=== PATIENT | male | born 1940 | race Caucasian/White ===

== ENCOUNTER → 2016-12-07 | Outpatient (CLI) | payer OTHER, MEDICARE | LOC: MMPC 09:00 | PROVIDERS: ATTEND Family Medicine | DX: I10 Essential (primary) hypertension (principal); E78.5 Hyperlipidemia, unspecified; E04.1 Nontoxic single thyroid nodule; Z85.46 Personal history of malignant neoplasm of prostate | CPT/HCPCS: 99213 ==

== ENCOUNTER → 2016-12-08 | Outpatient (CLI) | payer OTHER, MEDICARE ==
[2016-12-08 07:10] LABS: BASOPHILS # (AUTO) 0.03 10*3/UL; BASOPHILS % (AUTO) 0.6 % (0-1); EOSINOPHILS # (AUTO) 0.33 10*3/UL; EOSINOPHILS % (AUTO) 6.3 % (0-8); HEMATOCRIT 45.1 % (42.0-52.0); HEMOGLOBIN 15.2 g/dL (14.0-18.0); LYMPHOCYTES # (AUTO) 1.36 10*3/uL; MEAN CORPUSCULAR HEMOGLOBIN 31.3 PG (27-31); MEAN CORPUSCULAR HGB CONC 33.7 g/dL (33-37); MEAN CORPUSCULAR VOLUME 92.8 FL (80-90); MEAN PLATELET VOLUME 10.7 FL (7.4-12.2); MONOCYTES # (AUTO) 0.67 10*3/UL (0.3-0.8); MONOCYTES % (AUTO) 12.9 % (5-15); NEUTROPHILS # (AUTO) 2.81 10*3/UL; NEUTROPHILS % (AUTO) 53.9 % (50-80); RED BLOOD COUNT 4.86 10^6/uL (4.70-6.10)
[2016-12-08 07:12] LABS: PLATELET MORPHOLOGY COMMENT NORMAL MORPHOLOGY (NORM); RBC MORPHOLOGY COMMENT NORMAL MORPHOLOGY (NORM); WBC MORPHOLOGY COMMENT NORMAL MORPHOLOGY (NORM)
[2016-12-08 07:22] LABS: BUN/CREATININE RATIO 21.11 (6-20); CALCIUM 9.6 mg/dL (8.7-10.7); CHOL/HDL RATIO 3.86 RATIO (0-4.0); LDL CHOLESTEROL,CALCULATED 125.6 mg/dL
== END ==
LOC: LAB 06:56
PROVIDERS: ATTEND Family Medicine
DX: I10 Essential (primary) hypertension (principal); E04.1 Nontoxic single thyroid nodule; E78.5 Hyperlipidemia, unspecified; Z85.46 Personal history of malignant neoplasm of prostate; Z12.5 Encounter for screening for malignant neoplasm of prostate
CPT/HCPCS: 36415; 80053; 80061; 84443; 85025; G0103

== ENCOUNTER → 2017-01-14 | Outpatient (CLI) | payer OTHER, MEDICARE | LOC: MMPC 09:00 | PROVIDERS: ATTEND Family Medicine | DX: M25.561 Pain in right knee (principal) | CPT/HCPCS: 99213; G0463 ==

== ENCOUNTER → 2017-01-18 | Outpatient (CLI) | payer OTHER, MEDICARE ==
[2017-01-18 06:34] LABS: BILIRUBIN,URINE NEGATIVE (NEG); CLARITY,URINE CLEAR (CLEAR); COLOR,URINE YELLOW; GLUCOSE, URINE (UA) NEGATIVE (NEG); NITRATE,URINE NEGATIVE (NEG); OCCULT BLOOD,URINE NEGATIVE (NEG); PH,URINE 6.5 (5.0-8.5); PROTEIN,URINE NEGATIVE (NEG); UROBILINOGEN,URINE 0.2 EU/dL (0.2)
[2017-01-18 06:35] LABS: BASOPHILS # (AUTO) 0.05 10*3/UL; BASOPHILS % (AUTO) 0.8 % (0-1); EOSINOPHILS # (AUTO) 0.39 10*3/UL; EOSINOPHILS % (AUTO) 6.6 % (0-8); HEMATOCRIT 45.2 % (42.0-52.0); HEMOGLOBIN 15.3 g/dL (14.0-18.0); LYMPHOCYTES # (AUTO) 1.53 10*3/uL; MEAN CORPUSCULAR HGB CONC 33.8 g/dL (33-37); MEAN CORPUSCULAR VOLUME 91.5 FL (80-90); MEAN PLATELET VOLUME 10.7 FL (7.4-12.2); MONOCYTES # (AUTO) 0.66 10*3/UL (0.3-0.8); MONOCYTES % (AUTO) 11.2 % (5-15); NEUTROPHILS # (AUTO) 3.24 10*3/UL; NEUTROPHILS % (AUTO) 55.1 % (50-80); PLATELET MORPHOLOGY COMMENT NORMAL MORPHOLOGY (NORM); RBC MORPHOLOGY COMMENT NORMAL MORPHOLOGY (NORM); RED BLOOD COUNT 4.94 10^6/uL (4.70-6.10); URINE SAMPLE TYPE CLEAN CATCH URINE; WBC MORPHOLOGY COMMENT NORMAL MORPHOLOGY (NORM)
[2017-01-18 06:43] LABS: CALCIUM 9.4 mg/dL (8.7-10.7); SERUM ALBUMIN 4.1 g/dL (3.5-4.8)
--- NOTE | 2017-01-18 06:46 | EKG ---
[address] [address] Measurements Intervals [place] Rate: 62 P: 66 [place]: 181 QRS: 74 QRSD: 100 T: 46 QT: 401 QTc: 406 Interpretive Statements SINUS RHYTHM Compared to ECG 01/23/2016 15:56:39 No significant changes Electronically Signed On 01-18-17 16:28:36 MDT by Oscar Yates [email or web address]
== END ==
LOC: RAD 06:15 → RT 06:15
PROVIDERS: ATTEND Family Medicine
DX: M25.561 Pain in right knee (principal); I10 Essential (primary) hypertension
CPT/HCPCS: 36415; 80053; 81003; 85025; 86850; 86900; 86901; 87641; 93005; 93010

== ENCOUNTER → 2017-01-19 | Outpatient (CLI) | payer OTHER, MEDICARE ==
--- NOTE | 2017-01-19 12:30 | DI ---
HISTORY: Pre-op. FINDINGS: The heart is within normal limits with atheromatous changes of the dorsal aorta. The rebekah g anna are essentially clear. IMPRESSION: 1. No acute cardiopulmonary pathology identified.
== END ==
LOC: RAD 10:44
PROVIDERS: ATTEND Family Medicine
DX: M25.561 Pain in right knee (principal); I10 Essential (primary) hypertension
CPT/HCPCS: 71020

== ENCOUNTER → 2017-01-21 | Outpatient (CLI) | payer OTHER, MEDICARE | LOC: MMPC 09:00 | DX: L72.0 Epidermal cyst (principal) | CPT/HCPCS: 99212; G0463 ==

== ENCOUNTER → 2017-01-27 | Outpatient (CLI) | payer OTHER, MEDICARE | LOC: MMPC 11:11 | PROVIDERS: ATTEND Surgery | DX: L72.3 Sebaceous cyst (principal) | CPT/HCPCS: 99202; G0463 ==

== ENCOUNTER 2017-01-29 09:00 | Day surgery (SDC) | payer OTHER, MEDICARE ==
[~2017-01-29 09:00] MED LIST: LIDOCAINE HCL 1%/EPI 1:100,000 - 20 ML VIAL ONE; SODIUM BICARBONATE 8.4% - 50 ML VIAL ONE
[2017-01-29 11:35] VITALS: RESP 16
--- NOTE | 2017-01-29 11:40 | GEN.OPNOTE ---
Operative Note Surgery Date: 01/29/17 Preoperative Diagnosis: Inflamed sebaceous cyst left lower back. Postoperative Diagnosis: Inflamed sebaceous cyst left lower back. Procedure: Excision 3 cm sebaceous cyst left lower back. Surgeon: Milton Donaldson MD Anesthesia Type: Local (1% Xylocaine with epinephrine and sodium bicarbonate per Milton Donaldson M.D.) Estimated Blood Loss (mL): 2 Fluids: No IV fluids given Pathology: Specimen consistent with an inflamed sebaceous cyst. Not sent for pathologic analysis. Indications: Patient had a cyst for many years. Recently became inflamed. There is some erythema over the top. He was put on antibiotics. He needs surgical excision is taken to the operating room for the same. Findings: Consistent with an inflamed possibly infected sebaceous cyst. Complications: None. Operative Summary: The patient was taken to the operating suite and placed on the operating table in a prone position. The back was prepped and draped in a sterile fashion. A surgical timeout was done. There are actually 3 pores overlying the cyst. The area was infiltrated with 1% Xylocaine with epinephrine and sodium bicarbonate. An ellipse of skin to include all the pores was taken out as well as the entire cyst capsule. This was done both sharply and with electrocautery. The subcutaneous defect was extensively irrigated. Hemostasis was assured. The skin edges were undermined. The defect was closed with simple interrupted 3 -0 Prolene sutures followed by an appropriate dressing. The patient tolerated the procedure well without complication. He was taken to outpatient surgery in stable condition. All counts were correct.
[2017-01-29 12:02] VITALS: TEMP 97.6
== END 2017-01-29 11:56 | disposition home or self-care (01) ==
LOC: SDSC 09:00
PROVIDERS: ATTEND Surgery
DX: L72.3 Sebaceous cyst (principal)
CPT/HCPCS: 11404

== ENCOUNTER → 2017-02-02 | Outpatient (CLI) | payer OTHER, MEDICARE | LOC: MMPC 09:00 | PROVIDERS: ATTEND Physician Assistant Medical | DX: S80.12XA Contusion of left lower leg, initial encounter (principal); W22.8XXA Striking against or struck by other objects, initial encounter | CPT/HCPCS: 99213 ==

== ENCOUNTER → 2017-02-04 | Outpatient (CLI) | payer OTHER, MEDICARE | LOC: MMPC 11:11 | PROVIDERS: ATTEND Surgery | DX: L72.3 Sebaceous cyst (principal) ==

== ENCOUNTER → 2017-02-08 | Outpatient (CLI) | payer OTHER, MEDICARE ==
[2017-02-10 08:49] LABS: PARASITIC EXAM FIN 1937 (())
== END ==
LOC: LAB 08:07
PROVIDERS: ATTEND Family Medicine
DX: K92.1 Melena (principal); R19.7 Diarrhea, unspecified
CPT/HCPCS: 82710; 84376; 87046; 87177; 87205; 87209; 87328; 87329; 87493

== ENCOUNTER → 2017-02-09 | Outpatient (CLI) | payer OTHER, MEDICARE | LOC: MMPC 11:11 | PROVIDERS: ATTEND Surgery | DX: K92.1 Melena (principal); Z86.010 Personal history of colon polyps; R19.7 Diarrhea, unspecified; L72.3 Sebaceous cyst | CPT/HCPCS: 99212; G0463 ==

== ENCOUNTER 2017-02-19 08:20 | Emergency (ER) | payer OTHER, MEDICARE ==
[2017-02-19] MEDS ORDERED: NORMAL SALINE 10 ML SYRINGE FLUSH IVP PRN (09:00)
[2017-02-19 09:04] VITALS: RESP 18; TEMP 97.6
--- NOTE | 2017-02-19 09:19 | PDOC ---
Lower Extremity Problem HPI - General Chief Complaint: Lower Extremity Problem/Injury Stated Complaint: S/P TKA 02/16/17 - NOW SWELLING/FEVER/ITCHING Date Seen by Provider: 02/19/17 Time Seen by Provider: 08:35 Source: POSITIVE: Patient Exam Limitations: POSITIVE: No limitations Nurse's Notes Reviewed & Considered: Yes - History of Present Illness Initial Comments: The patient is a 76-year-old male who presents to the emergency department with increased pain and swelling to his right leg. He underwent total knee replacement surgery per Dr. Merritt at [facility] on Wednesday the this week. He states that this morning he seemed to be running a low-grade fever with a temperature of 100.1. He also noticed some increased pain and swelling to the medial aspect of his right thigh. He had contacted Dr. Merritt and he recommended that he come to the emergency room to have an ultrasound and evaluation. He denies any associated chest pain or shortness of breath. He is taking 2 aspirin twice a day. He denies any prior history of blood clots. He does take blood pressure medication. In addition to the increased pain and swelling in his leg, the patient is also having some itching he thinks associated with the hydrocodone. He has been taking Benadryl and this has not been helping. - Patient Home Medications Home Medications: Home Medications Epinephrine [Epipen 2-Ramy] 0.3 mg IM ONCE #2 unit 04/13/14 Amlodipine Besylate [Norvasc] 1 tab ORAL QD #90 tab 12/07/16 Fluticasone Hfa 110 Mcg INH [Flovent 110 Mcg Hfa] 2 puff INH PRN PRN inh Levothyroxine Sodium 1 tab ORAL QD #90 tab 12/07/16 Losartan/Hydrochlorothiazide [Hyzaar 100-25 Tablet] 1 tab ORAL QD #90 tab Olopatadine HCl [Pataday] 1 drop OP QD drop 12/07/16 Omeprazole 20 mg PO DAILY #90 cap 12/07/16 Fluticasone Propionate [Flonase Allergy Relief] 9.9 ml NS BID PRN #1 bottle Hydroxyzine HCl 25 - 50 mg PO Q4H PRN #30 tablet 02/19/17 Red Yeast Rice 600 mg PO DAILY 02/19/17 oxyCODONE/APAP 5/325 Tab [Percocet 5/325 Tab] 1 - 2 tab PO Q6H PRN #20 tab - Patient Allergies Allergies/Adverse Reactions: Allergies Allergy/AdvReac Type Severity Reaction Status Date / Time acetaminophen [From Anton] Allergy Intermediate ITCHING Verified 02/19/17 10:39 hydrocodone bitartrate Allergy Intermediate ITCHING Verified 02/19/17 10:39 [From Anton] Latex, Natural Rubber Allergy Intermediate RASH Verified 02/19/17 08:38 methylprednisolone Allergy Intermediate hives Verified 02/19/17 08:38 prednisone Allergy Intermediate Hives Verified 02/19/17 08:38 Ylueysp-Szd-Dky Reductase Allergy Intermediate "felt like Verified 02/19/17 08: 38 Inhibitor he was on fire" alprostadil [From Caverject] Allergy Unknown RASH Verified 02/19/17 08:38 Shellfish *RETIRED-04/28/12 Allergy Unknown Anaphylaxis Verified 02/19/17 08:38 [Shellfish] bupivacaine Allergy Blood Verified 02/19/17 08:38 pressure drops fentanyl [Fentanyl] AdvReac Severe CHEST PAIN Verified 02/19/17 08:38 OR TIGHTNESS IOBAN Allergy HIVES Uncoded 02/19/17 08:38 POLYESTER Allergy HIVES Uncoded 02/19/17 08:38 Past Medical History - heen HEENT History: Denies History Cardiovascular History: Hypertension, Valvular Heart Disease, Hyperlipidemia Respiratory History: Asthma Additional Respiratory History: HAYFEVER, SEASONAL Gastrointestinal History: GERD Additional Gastrointestinal History: possible C-Diff 12/06 Genitourinary History: Denies History Endocrine History: Hypothyroidism Musculoskeletal History: Arthritis, Limited ROM Prosthesis or Implant: Yes (R GREAT TOE, L TKA, RT TKA) Additional Musculoskeletal History: 02/16/17 RT TKA Neurological History: Denies History Blood Disorders: Denies History Psychiatric History: Denies History History of Sexually Transmitted Diseases: No Cancer History: Other (please comment) In Past Year Been Physically Harmed or Verbally Threatened: No History of MDRO: No History of Other Communicable Diseases: No Tobacco Use: Never Smoker Alcohol Use: Occasionally Substance Use Type: None Previous Surgical History: Yes Type / Date of Surgery: LEFT KNEE SCOPE/ NASAL POLYPECTOMY X 3/ LEFT TKA/ RIGHT BIG TOE/ RADICAL PROSTATECTOMY/ BILAT ETHMOIDECTOMIES. 02/16/17 RT TKA Anesthesia Reactions: Yes (CAN NOT TAKE FENTANYL/ SEVERE HYPOTENSION AND BRADYCARDIA) Malignant Hyperthermia: No Significant Family History: Cancer Past Medical History Reviewed: Reviewed - No Changes ROS - Limitations ROS Limitations: No Limitations Constitution: REPORTS: Fever (Temp 100.1 this morning). DENIES: Chills Cardiovascular: DENIES: Chest Pain, Heart Palpitations Respiratory: DENIES: Hurts To Breathe, Shortness Of Breath Neurological: REPORTS: Denies Neuro Symptoms Gastrointestinal: REPORTS: Denies GI Symptoms Eyes: REPORTS: Denies Symptoms ENT: REPORTS: Denies Symptoms Skin: REPORTS: Other (He does have itching with no rash) Lower Ext Problem Exam - General Appearance General Appearance: POSITIVE: Alert, No Acute Distress - Extremities Lower Extremity: POSITIVE: Other (Examination the right lower extremity reveals a midline incision over the right knee from recent knee replacement surgery, the wound itself looks good, there is no obvious drainage, no obvious surrounding erythema or induration, there is some mild bruising around the incision, he does have an area of tenderness and slight increased redness to the medial aspect of the right thigh proximal to his knee, some mild swelling in the lower extremity below the knee as well, good dorsalis pedis pulse in the right foot) Vascular: POSITIVE: No Vascular Compromise - Neuro / Psych Neuro/Psych: POSITIVE: Sensation Normal (He does report an area of numbness to the right big toe however he states he has had this problem off and on), Motor Normal - HEENT HEENT: POSITIVE: Head Inspection Nml - Respiratory / CVS Respiratory / CVS: POSITIVE: No Respiratory Distress, Breath Sounds Normal, Regular Rate/Rhythm, Heart Sounds Normal - Abdomen Abdomen: Soft: (All Quadrants), Denies Tenderness: (All Quadrants), No Distention: (All Quadrants) Images - Uploaded Photos Uploaded Photos: Lower Ext Problem Progress - Results Reviewed by me Xrays/CTs/US Reviewed by me: Yes Discussed with Radiologist: Yes Radiology Findings: Ultrasound of the right lower extremity is negative for DVT per radiologist. Lab Results Reviewed: Yes - Patient's Progress MDM / ED Course: The patient is afebrile here in the emergency department. The dressing was taken off of the right knee shortly after arrival. The nursing staff stated that initially it seemed fairly tight. The patient reported subjective improvement in pain just with removal of the dressing. The wound itself appears to be healing well, there is a small area of fluid lateral to the incision with no significant induration or erythema, he does have some mild erythema extending to the medial aspect of his thigh, no drainage from the wound. His inflammatory markers are elevated with a CRP of 16 and an ESR of 43. Venous Doppler was negative for DVT. I did call and discuss the patient with Isac who is Dr. Merritt's PA. She recommended continued monitoring of the wound at this point and thought the inflammatory markers were elevated from surgery. The patient was advised of this recommendation. She recommended that he follow up with their office next . She also stated that it was okay to leave the dressing off at this point which also may help. In addition the patient is having problems with itching secondary to the hydrocodone. He'll be switched to Percocet 5/325 which he can take one or 2 every 6 hours as needed for pain. In addition he was prescribed Atarax 25-50 mg every 4-6 hours as needed for itching. He is advised return to the emergency room if he develops increased swelling, fevers or chills, increased pain, drainage from the wound, any worsening or change in symptoms. Patient Care Time - Estimated PCT Patient Care Time (In Minutes): 35 Vital Signs - Recent Vital Signs Vital Signs: Vital Signs (Last 8 hours) Temp Pulse Resp BP Pulse Ox 02/19/17 08:24 97.6 F 84 18 140/79 91 - VS Reviewed Vital Signs Reviewed: Yes Discharge Clinical Impression: Post-operative pain Discharge Disposition: Discharged to Home Condition: Stable Prescriptions / Orders: Hydroxyzine HCl 25 - 50 mg PO Q4H PRN #30 tablet PRN Reason: Itching oxyCODONE/APAP 5/325 Tab [Percocet 5/325 Tab] 1 - 2 tab PO Q6H PRN #20 tab PRN Reason: Pain Additional Instructions: The ultrasound of your leg was negative for blood clot. The wound itself looks good with the exception of a small fluid collection as well as some redness and tenderness to the right thigh which most likely represents postoperative bruising and inflammation. I did discuss your lab work, ultrasound findings with Isac who is Dr. Merritt's PA. She thought that the elevated inflammatory markers were postoperative and not necessarily indicative of infection. Will continue to monitor the wound. She recommended a recheck in their office on of next week. Return to the emergency room sooner if you develop increased pain or swelling, fevers or chills, drainage from the wound, any worsening or change in symptoms. She also stated that it would be okay to leave the dressing off the incision and leave it open to the air. She stated that you could take a shower with the wound uncovered however should not soak the wound in water. In addition because of the itching caused from the hydrocodone you have been switched to Percocet 5/325 which she can take one or 2 every 6 hours as needed for pain. You've also been prescribed Atarax 25 mg which she can take one or 2 every 4-6 hours as needed for itching. Follow Up With: LIAT MERRITT [Primary Care Provider] -
[2017-02-19 09:22] LABS: BASOPHILS # (AUTO) 0.04 10*3/UL; BASOPHILS % (AUTO) 0.5 % (0-1); EOSINOPHILS # (AUTO) 0.35 10*3/UL; HEMATOCRIT 36.7 % (42.0-52.0); LYMPHOCYTES # (AUTO) 1.14 10*3/uL; MEAN CORPUSCULAR HEMOGLOBIN 30.8 PG (27-31); MEAN CORPUSCULAR HGB CONC 32.7 g/dL (33-37); MEAN CORPUSCULAR VOLUME 94.1 FL (80-90); MEAN PLATELET VOLUME 10.7 FL (7.4-12.2); MONOCYTES # (AUTO) 0.84 10*3/UL (0.3-0.8); MONOCYTES % (AUTO) 9.6 % (5-15); NEUTROPHILS # (AUTO) 6.36 10*3/UL; NEUTROPHILS % (AUTO) 72.7 % (50-80)
[2017-02-19 09:33] LABS: BUN/CREATININE RATIO 18.75 (6-20); CALCIUM 8.7 mg/dL (8.7-10.7); SERUM ALBUMIN 3.4 g/dL (3.5-4.8)
[2017-02-19 09:55] LABS: C-REACTIVE PROTEIN 16.7 mg/dL (0.0-0.9)
[2017-02-19 10:20] LABS: PLATELET MORPHOLOGY COMMENT NORMAL MORPHOLOGY (NORM); RBC MORPHOLOGY COMMENT NORMAL MORPHOLOGY (NORM); WBC MORPHOLOGY COMMENT NORMAL MORPHOLOGY (NORM)
--- NOTE | 2017-02-19 10:30 | DI ---
VENOUS DOPPLER ULTRASOUND OF THE RIGHT LOWER EXTREMITY, 02/19/2017 9:00 AM: Clinical History: Right lower extremity pain and swelling after right total knee arthroplasty. Previous Exam: None. Technique: 2D real-time imaging is supplemented with color Doppler ultrasound. Compression and augmen tation maneuvers were performed. The long saphenous vein is normal. Reading: No evidence of deep venous thrombosis
== END 2017-02-19 11:00 | disposition home or self-care (01) ==
LOC: ER 08:20
DX: G89.18 Other acute postprocedural pain (principal); R50.9 Fever, unspecified; R22.41 Localized swelling, mass and lump, right lower limb; I10 Essential (primary) hypertension; E78.5 Hyperlipidemia, unspecified; Z98.1 Arthrodesis status
CPT/HCPCS: 80053; 85025; 85652; 86140; 93971; 99283